=== PATIENT | female | born 1935 | race Two or more races ===

== ENCOUNTER 2021-06-12 07:07 | Inpatient (IN) | payer OTHER, MEDICAID ==
[~2021-06-12] VITALS: Ht 167.6 cm; Wt 97.3 kg
[2021-06-12] MEDS ORDERED: IPRATROPIUM BROM 0.5 MG/2.5ML INH SOL NEB ONE (07:30)
[2021-06-12] MEDS ORDERED: methylPREDNISolone SOD SUCC 125 MG/2 ML VL IV ONE (07:30)
[2021-06-12] MEDS ORDERED: ALBUTEROL SULF 2.5 MG/0.5ML(0.5%) NEB SOLN NEB ONE (07:30)
[2021-06-12 08:45] LABS: Basophils # (auto) 0 10 ^3/uL (0-0.2); Basophils % (auto) 0.4 % (0.0-2.0); Eosinophils # (auto) 0.1 10 ^3/uL (0-0.8); Eosinophils % (auto) 0.7 % (0.0-7.0); Hematocrit 35.7 % (36.0-46.0); Hemoglobin 11.8 g/dL (12.2-16.2); Lymphocytes # (auto) 1.5 10 ^3/uL (0.4-5.4); Lymphocytes % (auto) 15.9 % (10.0-50.0); Mean Corpuscular Hemoglobin 30.5 pg (28.0-32.0); Mean Corpuscular Volume 92.4 fL (80.0-100.0); Monocytes # (auto) 0.6 10 ^3/uL (0-1.3); Monocytes % (auto) 6.2 % (0.0-12.0); Neutrophils % (auto) 76.8 % (37.0-80.0); Nucleated Red Blood Cells % 0.1 %; Red Blood Cells 3.87 10^6/uL (4.0-5.20); Red Cell Distribution Width 14.2 % (11.8-14.3); White Blood Cell 9.2 10^3/uL (4.4-10.8)
[2021-06-12 08:57] LABS: Albumin 2.6 g/dL (3.4-5.0); BUN/Creatinine Ratio 20.5; Calcium 8.4 mg/dL (8.5-10.1); Potassium 3.2 mmol/L (3.5-5.1)
[2021-06-12 09:02] LABS: Bilirubin, Total 0.5 mg/dL (0.2-1.0); Total Protein 7.1 g/dL (6.4-8.2)
[2021-06-12] MEDS ORDERED: ENOXAPARIN SOD 120 MG/0.8 ML SYRINGE SC ONE (09:45)
[2021-06-12] MEDS ORDERED: ONDANSETRON HCL 4 MG/2 ML VIAL IV PRN (11:45)
[2021-06-12] MEDS ORDERED: FUROSEMIDE 20 MG/2 ML VIAL IV ONE (11:45)
[2021-06-12] MEDS ORDERED: hydrALAZINE HCL 20 MG/ML VL IV PRN (11:45)
[2021-06-12] MEDS ORDERED: HYDROcodone-ACET 5/325MG TAB PO PRN (11:45)
[2021-06-12] MEDS ORDERED: NITROGLYCERIN 0.4 MG SL TAB SL PRN (11:45)
[2021-06-12] MEDS ORDERED: POTASSIUM EFFERVESENT TAB 25 MEQ PO ONE (11:45)
[2021-06-12] MEDS ORDERED: MORPHINE SULFATE INJECTION 2 MG/ML SYRG IV PRN ×2 (11:45)
[2021-06-12] MEDS ORDERED: ACETAMINOPHEN 500 MG TAB PO PRN (11:45)
[2021-06-12 14:12] LABS: Urine Bacteria FEW /hpf (None Seen); Urine Blood Negative /uL (Negative); Urine Mucus FEW (None Seen); Urine Specific Gravity 1.012 (1.001-1.035); Urine WBC 14 /hpf (0 - 5)
[2021-06-12] MEDS: METOPROLOL TARTRATE 25 MG TAB PO SCH (23:57)
[2021-06-12] MEDS: ATORVASTATIN 20 MG TAB PO SCH (23:57)
[2021-06-12] MEDS: ENOXAPARIN SOD 120 MG/0.8 ML SYRINGE SC SCH (23:58)
[2021-06-13 07:00] LABS: Basophils # (auto) 0 10 ^3/uL (0-0.2); Basophils % (auto) 0.1 % (0.0-2.0); Eosinophils # (auto) 0 10 ^3/uL (0-0.8); Eosinophils % (auto) 0.1 % (0.0-7.0); Hematocrit 33.3 % (36.0-46.0); Hemoglobin 11.3 g/dL (12.2-16.2); Lymphocytes # (auto) 0.8 10 ^3/uL (0.4-5.4); Lymphocytes % (auto) 8.4 % (10.0-50.0); Mean Corpuscular Hemoglobin 31.2 pg (28.0-32.0); Mean Corpuscular Hgb Conc. 33.8 g/dL (32.0-36.0); Mean Corpuscular Volume 92.3 fL (80.0-100.0); Monocytes # (auto) 0.5 10 ^3/uL (0-1.3); Monocytes % (auto) 5.5 % (0.0-12.0); Neutrophils # (auto) 7.9 10 ^3/uL (1.6-8.6); Neutrophils % (auto) 85.9 % (37.0-80.0); Red Blood Cells 3.61 10^6/uL (4.0-5.20); Red Cell Distribution Width 14.2 % (11.8-14.3); White Blood Cell 9.2 10^3/uL (4.4-10.8)
[2021-06-13 07:07] LABS: INR 1.17 (0.9-1.15); Partial Thromboplastin Time 36.1 sec (23.6-33.0)
[2021-06-13 07:18] LABS: Potassium 4.3 mmol/L (3.5-5.1)
[2021-06-13 07:23] LABS: BUN/Creatinine Ratio 29.6; Calcium 8.4 mg/dL (8.5-10.1)
[2021-06-13 09:01] VITALS: BP 104/54
[2021-06-13] MEDS ORDERED: IOHEXOL 350 MG/ML 100ML IJ ONE ×2 (09:39→17:40)
[2021-06-13] MEDS: METOPROLOL TARTRATE 25 MG TAB PO SCH (10:42)
[2021-06-13] MEDS: LISINOPRIL 10 MG TAB PO SCH (10:42)
[2021-06-13] MEDS: ASPirin-EC 81 mg tab PO SCH (10:42)
[2021-06-13] MEDS: ENOXAPARIN SOD 120 MG/0.8 ML SYRINGE SC SCH ×2 (10:43→22:05)
[2021-06-13 13:00] VITALS: BP 96/49
[2021-06-13] MEDS ORDERED: CALC667C PO (16:52)
[2021-06-13] MEDS ORDERED: AMLO-496 PO (16:52)
[2021-06-13] MEDS ORDERED: OMEP20TA PO (16:52)
[2021-06-13] MEDS ORDERED: MEMA1TAB5 PO (16:52)
[2021-06-13] MEDS ORDERED: LOSA-69 PO (16:52)
[2021-06-13] MEDS ORDERED: CHOL500035 PO (16:52)
[2021-06-13] MEDS ORDERED: MIRT1TAB38 PO (16:52)
[2021-06-13 17:00] VITALS: BP 103/48
[2021-06-13] MEDS: cefTRIAXone 1GM/50ML D5W 50 ML IV SCH (17:17)
[2021-06-13 22:00] VITALS: BP 103/60
[2021-06-13] MEDS: ATORVASTATIN 20 MG TAB PO SCH (22:05)
[2021-06-14 05:00] VITALS: BP 134/76
[2021-06-14 07:28] LABS: Basophils # (auto) 0.1 10 ^3/uL (0-0.2); Basophils % (auto) 0.6 % (0.0-2.0); Eosinophils # (auto) 0.1 10 ^3/uL (0-0.8); Eosinophils % (auto) 1.2 % (0.0-7.0); Hematocrit 31.6 % (36.0-46.0); Hemoglobin 10.7 g/dL (12.2-16.2); Lymphocytes # (auto) 1.5 10 ^3/uL (0.4-5.4); Lymphocytes % (auto) 15.3 % (10.0-50.0); Mean Corpuscular Hemoglobin 31.4 pg (28.0-32.0); Mean Corpuscular Hgb Conc. 33.9 g/dL (32.0-36.0); Mean Corpuscular Volume 92.7 fL (80.0-100.0); Monocytes # (auto) 0.6 10 ^3/uL (0-1.3); Monocytes % (auto) 5.9 % (0.0-12.0); Neutrophils # (auto) 7.6 10 ^3/uL (1.6-8.6); Red Blood Cells 3.42 10^6/uL (4.0-5.20); Red Cell Distribution Width 14.4 % (11.8-14.3); White Blood Cell 9.9 10^3/uL (4.4-10.8)
[2021-06-14 07:29] LABS: Potassium 3.8 mmol/L (3.5-5.1)
[2021-06-14 07:35] LABS: BUN/Creatinine Ratio 36.8; Calcium 8.4 mg/dL (8.5-10.1)
[2021-06-14 08:05] VITALS: BP 117/64
[2021-06-14] MEDS: cefTRIAXone 1GM/50ML D5W 50 ML IV SCH (08:05)
[2021-06-14 09:40] VITALS: BP 117/64
[2021-06-14] MEDS: LISINOPRIL 10 MG TAB PO SCH (09:54)
[2021-06-14] MEDS: ASPirin-EC 81 mg tab PO SCH (09:54)
[2021-06-14] MEDS: ENOXAPARIN SOD 120 MG/0.8 ML SYRINGE SC SCH ×2 (09:55→21:08)
[2021-06-14] MEDS: SODIUM CHLORIDE 0.9% 1,000 ML IV SCH (12:32)
[2021-06-14 13:08] VITALS: BP 130/73
[2021-06-14 17:25] VITALS: BP 116/59
[2021-06-14] MEDS: ATORVASTATIN 20 MG TAB PO SCH (21:06)
[2021-06-14] MEDS: MIRTAZAPINE 30 MG TAB PO SCH (21:07)
[2021-06-14 22:00] VITALS: BP 124/66
[2021-06-15] MEDS: SODIUM CHLORIDE 0.9% 1,000 ML IV SCH (04:14)
[2021-06-15 05:00] VITALS: BP 136/70
[2021-06-15 06:53] LABS: Calcium 7.9 mg/dL (8.5-10.1); Potassium 3.5 mmol/L (3.5-5.1)
[2021-06-15 06:56] LABS: BUN/Creatinine Ratio 32.1
[2021-06-15] MEDS: ASPirin-EC 81 mg tab PO SCH (08:59)
[2021-06-15] MEDS: ENOXAPARIN SOD 120 MG/0.8 ML SYRINGE SC SCH ×2 (08:59→22:03)
[2021-06-15] MEDS: cefTRIAXone 1GM/50ML D5W 50 ML IV SCH (08:59)
[2021-06-15 09:00] VITALS: BP 115/54
[2021-06-15 17:23] VITALS: BP 134/64
[2021-06-15 22:00] VITALS: BP 139/56
[2021-06-15] MEDS: ATORVASTATIN 20 MG TAB PO SCH (22:03)
[2021-06-15] MEDS: MIRTAZAPINE 30 MG TAB PO SCH (22:03)
[2021-06-16 05:01] VITALS: BP 150/80
[2021-06-16 06:11] LABS: Hemoglobin 10.8 g/dL (12.2-16.2); Mean Corpuscular Hgb Conc. 33.8 g/dL (32.0-36.0); Mean Corpuscular Volume 91.6 fL (80.0-100.0); Red Blood Cells 3.49 10^6/uL (4.0-5.20); Red Cell Distribution Width 13.8 % (11.8-14.3)
[2021-06-16 06:20] LABS: Potassium 3.5 mmol/L (3.5-5.1)
[2021-06-16 06:22] LABS: BUN/Creatinine Ratio 24.7
[2021-06-16 06:28] LABS: Basophils % (manual) 0 (0.0-2.0); Blast Cells 0; Metamyelocytes % 0; Myelocytes % 0; Promyelocytes % 0; Reactive Lymphocytes 0
[2021-06-16 07:17] LABS: Band Neutrophils % (manual) 4; Eosinophils % (manual) 3 (0-7); Lymphocytes % (manual) 23 (10.0-50.0); Monocytes % (manual) 7 (0-12)
[2021-06-16 09:00] VITALS: BP 124/67
[2021-06-16] MEDS: cefTRIAXone 1GM/50ML D5W 50 ML IV SCH (09:28)
[2021-06-16] MEDS: ENOXAPARIN SOD 120 MG/0.8 ML SYRINGE SC SCH (09:29)
[2021-06-16] MEDS: ASPirin-EC 81 mg tab PO SCH (09:29)
[2021-06-16 13:00] VITALS: BP 140/70
[2021-06-16] MEDS: PANTOPRAZOLE 40 MG TAB PO SCH (15:44)
[2021-06-16 17:00] VITALS: BP 131/96
[2021-06-16] MEDS: ENOXAPARIN SOD 100 MG/1 ML SYRINGE SC SCH (21:32)
[2021-06-16] MEDS: MIRTAZAPINE 30 MG TAB PO SCH (21:33)
[2021-06-16] MEDS: ATORVASTATIN 20 MG TAB PO SCH (21:33)
[2021-06-16 22:25] VITALS: BP 116/71
[2021-06-17 05:00] VITALS: BP 133/66
[2021-06-17 09:00] VITALS: BP 129/73
[2021-06-17] MEDS: ENOXAPARIN SOD 100 MG/1 ML SYRINGE SC SCH ×2 (09:20→22:35)
[2021-06-17] MEDS: ASPirin-EC 81 mg tab PO SCH (09:21)
[2021-06-17] MEDS: PANTOPRAZOLE 40 MG TAB PO SCH (09:21)
[2021-06-17] MEDS: cefTRIAXone 1GM/50ML D5W 50 ML IV SCH (09:21)
[2021-06-17 13:00] VITALS: BP 121/65
[2021-06-17] MEDS ORDERED: LACTULOSE 20Gm/30ML SOLN PO PRN ×2 (13:00)
[2021-06-17 17:00] VITALS: BP 102/52
[2021-06-17 22:00] VITALS: BP 110/72
[2021-06-17] MEDS: DOCUSATE SOD 100 MG CAP PO SCH (22:33)
[2021-06-17] MEDS: ATORVASTATIN 20 MG TAB PO SCH (22:33)
[2021-06-17] MEDS: MIRTAZAPINE 30 MG TAB PO SCH (22:35)
[2021-06-18 05:30] VITALS: BP 121/60
[2021-06-18 07:38] LABS: Hemoglobin 10.4 g/dL (12.2-16.2); Mean Corpuscular Hemoglobin 30.5 pg (28.0-32.0); Mean Corpuscular Hgb Conc. 33.4 g/dL (32.0-36.0); Mean Corpuscular Volume 91.4 fL (80.0-100.0); Red Blood Cells 3.39 10^6/uL (4.0-5.20); Red Cell Distribution Width 13.7 % (11.8-14.3)
[2021-06-18 08:00] VITALS: BP 137/69
[2021-06-18 08:01] LABS: BUN/Creatinine Ratio 23.5; Calcium 7.9 mg/dL (8.5-10.1); Magnesium 1.9 mg/dL (1.6-2.6); Potassium 4.1 mmol/L (3.5-5.1)
[2021-06-18 08:39] LABS: Basophils % (manual) 0 (0.0-2.0); Blast Cells 0; Metamyelocytes % 0; Myelocytes % 0; Promyelocytes % 0; Reactive Lymphocytes 0
[2021-06-18 09:00] VITALS: BP 137/69
[2021-06-18] MEDS: PANTOPRAZOLE 40 MG TAB PO SCH (09:37)
[2021-06-18] MEDS: ENOXAPARIN SOD 100 MG/1 ML SYRINGE SC SCH ×2 (09:37→20:34)
[2021-06-18] MEDS: cefTRIAXone 1GM/50ML D5W 50 ML IV SCH (09:37)
[2021-06-18] MEDS: DOCUSATE SOD 100 MG CAP PO SCH ×2 (09:37→20:33)
[2021-06-18] MEDS: ASPirin-EC 81 mg tab PO SCH (09:37)
[2021-06-18] MEDS ORDERED: MAGNESIUM SULFATE 1GM/100ML 100 ML IV ONE (12:00)
[2021-06-18 13:05] VITALS: BP 158/83
[2021-06-18 13:05] LABS: Band Neutrophils % (manual) 2; Eosinophils % (manual) 4 (0-7); Lymphocytes % (manual) 13 (10.0-50.0); Monocytes % (manual) 8 (0-12)
[2021-06-18 17:00] VITALS: BP 125/72
[2021-06-18] MEDS: MIRTAZAPINE 30 MG TAB PO SCH (20:33)
[2021-06-18] MEDS: ATORVASTATIN 20 MG TAB PO SCH (20:33)
[2021-06-18 22:00] VITALS: BP 127/67
[2021-06-19 05:00] VITALS: BP 100/58
[2021-06-19 08:30] VITALS: BP 132/72
[2021-06-19] MEDS: PANTOPRAZOLE 40 MG TAB PO SCH (10:21)
[2021-06-19] MEDS: cefTRIAXone 1GM/50ML D5W 50 ML IV SCH (10:21)
[2021-06-19] MEDS: ASPirin-EC 81 mg tab PO SCH (10:21)
[2021-06-19] MEDS: DOCUSATE SOD 100 MG CAP PO SCH ×2 (10:21→20:31)
[2021-06-19] MEDS: ENOXAPARIN SOD 100 MG/1 ML SYRINGE SC SCH (10:22)
[2021-06-19 13:30] VITALS: BP 140/62
[2021-06-19 16:30] VITALS: BP 120/69
[2021-06-19] MEDS: ATORVASTATIN 20 MG TAB PO SCH (20:31)
[2021-06-19] MEDS: MIRTAZAPINE 30 MG TAB PO SCH (20:32)
[2021-06-19] MEDS: APIXABAN 5 MG TAB PO SCH (20:32)
[2021-06-19 21:30] VITALS: BP 127/67
[2021-06-20 05:00] VITALS: BP 129/56
[2021-06-20 09:00] VITALS: BP 133/61
[2021-06-20] MEDS: DOCUSATE SOD 100 MG CAP PO SCH (09:33)
[2021-06-20] MEDS: APIXABAN 5 MG TAB PO SCH (09:33)
[2021-06-20] MEDS: PANTOPRAZOLE 40 MG TAB PO SCH (09:34)
[2021-06-20 12:50] VITALS: BP 133/86
[2021-06-26] MEDS ORDERED: APIXABAN 5 MG TAB PO SCH (22:00)
== END 2021-06-20 16:28 | disposition home or self-care (01) | DRG 280 ==
LOC: EDBD 07:07 → ER 07:07 → EDBD 11:41 → TELE 11:41 → TELE-WESTW 06-13 09:02
PROVIDERS: ADMIT Nurse Practitioner Acute Care; ATTEND Internal Medicine
DX: I21.4 Non-ST elevation (NSTEMI) myocardial infarction (principal); I26.99 Other pulmonary embolism without acute cor pulmonale; J96.01 Acute respiratory failure with hypoxia; I82.442 Acute embolism and thrombosis of left tibial vein; I82.412 Acute embolism and thrombosis of left femoral vein; J45.901 Unspecified asthma with (acute) exacerbation; I48.91 Unspecified atrial fibrillation; N18.30 Chronic kidney disease, stage 3 unspecified; Z20.822 Contact with and (suspected) exposure to COVID-19; E66.9 Obesity, unspecified; E78.5 Hyperlipidemia, unspecified; F02.80 Dementia in other diseases classified elsewhere, unspecified severity, without behavioral disturbance, psychotic disturbance, mood disturbance, and anxiety; I12.9 Hypertensive chronic kidney disease with stage 1 through stage 4 chronic kidney disease, or unspecified chronic kidney disease; G30.9 Alzheimer's disease, unspecified; J44.9 Chronic obstructive pulmonary disease, unspecified; K59.00 Constipation, unspecified; R73.03 Prediabetes; Z79.01 Long term (current) use of anticoagulants; Z88.0 Allergy status to penicillin; Z68.33 Body mass index [BMI] 33.0-33.9, adult
CPT/HCPCS: 36415; 36600; 71045; 71275; 80048; 80053; 81001; 82805; 83735; 83880; 84484; 85007; 85025; 85027; 85379; 85610; 85730; 86141; 87086; 87426; 93005; 93306; 93970; 94640; 96372; 96374; 97116; 97163; 97530; G0378; J0696

== ENCOUNTER 2021-08-20 23:15 | Emergency (ER) | payer OTHER, MEDICAID ==
[~2021-08-20] VITALS: Ht 154.9 cm; Wt 83.9 kg
[~2021-08-20 23:15] MED LIST: AMLO-496 PO; CALC667C PO; CHOL500035 PO; LOSA-69 PO; MEMA1TAB5 PO; MIRT1TAB38 PO; OMEP20TA PO
[2021-08-21 02:43] LABS: Basophils # (auto) 0.1 10 ^3/uL (0-0.2); Basophils % (auto) 1.1 % (0.0-2.0); Eosinophils # (auto) 0.2 10 ^3/uL (0-0.8); Eosinophils % (auto) 4.1 % (0.0-7.0); Hematocrit 35.8 % (36.0-46.0); Hemoglobin 11.7 g/dL (12.2-16.2); Lymphocytes # (auto) 1.5 10 ^3/uL (0.4-5.4); Lymphocytes % (auto) 24.4 % (10.0-50.0); Mean Corpuscular Hemoglobin 29.5 pg (28.0-32.0); Mean Corpuscular Hgb Conc. 32.8 g/dL (32.0-36.0); Mean Corpuscular Volume 89.9 fL (80.0-100.0); Monocytes # (auto) 0.4 10 ^3/uL (0-1.3); Monocytes % (auto) 6.5 % (0.0-12.0); Neutrophils # (auto) 3.8 10 ^3/uL (1.6-8.6); Neutrophils % (auto) 63.9 % (37.0-80.0); Red Blood Cells 3.98 10^6/uL (4.0-5.20); Red Cell Distribution Width 14.1 % (11.8-14.3)
[2021-08-21 02:58] LABS: INR 1.4 (0.9-1.15); Partial Thromboplastin Time 54.8 sec (23.6-33.0)
[2021-08-21 03:01] LABS: Albumin 3.2 g/dL (3.4-5.0); Calcium 8.2 mg/dL (8.5-10.1); Magnesium 2.5 mg/dL (1.6-2.6); Potassium 3.8 mmol/L (3.5-5.1)
[2021-08-21 03:06] LABS: BUN/Creatinine Ratio 25.6; Bilirubin, Total 0.3 mg/dL (0.2-1.0); Total Protein 7.6 g/dL (6.4-8.2)
[2021-08-21] MEDS ORDERED: ALBU108A5 IN (05:08)
[2021-08-21] MEDS ORDERED: PRED20TA2 PO ×2 (05:08→12:18)
[2021-08-21 05:27] VITALS: BP 147/71
[2021-08-21] MEDS ORDERED: ALBUAER3 IN (12:18)
== END 2021-08-21 05:40 | disposition home or self-care (01) ==
LOC: EDBD 23:15 → ER 23:15
DX: I26.99 Other pulmonary embolism without acute cor pulmonale (principal); R06.00 Dyspnea, unspecified; J45.909 Unspecified asthma, uncomplicated; I10 Essential (primary) hypertension; Z88.0 Allergy status to penicillin
CPT/HCPCS: 36415; 71045; 71275; 80053; 83735; 83880; 84484; 85025; 85610; 85730; 93005; 99285; Q9967

== ENCOUNTER 2021-09-06 20:08 | Emergency (ER) | payer OTHER, MEDICAID ==
[~2021-09-06] VITALS: Ht 162.6 cm; Wt 81.6 kg
[~2021-09-06 20:08] MED LIST changes: +ALBU108A5 IN; +ALBUAER3 IN; +PRED20TA2 PO
[2021-09-07] MEDS ORDERED: ACETAMINOPHEN 325 MG TAB PO ONE ×3 (00:15→02:00)
[2021-09-07 02:33] VITALS: BP 144/86
== END 2021-09-07 03:21 | disposition home or self-care (01) ==
LOC: EDBD 20:08 → ER 20:08
DX: S82.62XA Displaced fracture of lateral malleolus of left fibula, initial encounter for closed fracture (principal); I10 Essential (primary) hypertension; J45.909 Unspecified asthma, uncomplicated; Z88.0 Allergy status to penicillin; Z91.018 Allergy to other foods; X58.XXXA Exposure to other specified factors, initial encounter; Y93.89 Activity, other specified; Y92.89 Other specified places as the place of occurrence of the external cause; Y99.8 Other external cause status
CPT/HCPCS: 29515; 73610

== ENCOUNTER 2022-02-08 07:46 | Inpatient (IN) | payer OTHER, MEDICAID ==
[~2022-02-08] VITALS: Ht 157.5 cm; Wt 102.2 kg
[2022-02-08] MEDS ORDERED: VANCOMYCIN PER PHARMACY 0 MG IV SCH (09:00)
[2022-02-08] MEDS ORDERED: SODIUM CHLORIDE 0.9% 2,700 ML IV ONE (09:00)
[2022-02-08] MEDS ORDERED: CEFEPIME 1GM/ 50ML 50 ML IV ONE (09:00)
[2022-02-08] MEDS ORDERED: ACETAMINOPHEN 650 MG RECT SUPP PR ONE (09:00)
[2022-02-08] MEDS ORDERED: VANCOMYCIN 1GM/250ML 250 ML IV ONE (10:00)
[2022-02-08 10:02] LABS: Basophils # (auto) 0 10 ^3/uL (0-0.2); Basophils % (auto) 0.4 % (0.0-2.0); Eosinophils # (auto) 0.1 10 ^3/uL (0-0.8); Eosinophils % (auto) 0.7 % (0.0-7.0); Hematocrit 29.3 % (36.0-46.0); Hemoglobin 9.4 g/dL (12.2-16.2); Lymphocytes # (auto) 0.6 10 ^3/uL (0.4-5.4); Mean Corpuscular Hemoglobin 29.1 pg (28.0-32.0); Mean Corpuscular Hgb Conc. 32.1 g/dL (32.0-36.0); Mean Corpuscular Volume 90.7 fL (80.0-100.0); Monocytes # (auto) 0.3 10 ^3/uL (0-1.3); Neutrophils # (auto) 6.1 10 ^3/uL (1.6-8.6); Neutrophils % (auto) 86.9 % (37.0-80.0); Nucleated Red Blood Cells % 0.1 %; Red Blood Cells 3.23 10^6/uL (4.0-5.20); Red Cell Distribution Width 14.3 % (11.8-14.3); White Blood Cell 7.1 10^3/uL (4.4-10.8)
[2022-02-08 10:04] LABS: Albumin 2.4 g/dL (3.4-5.0); BUN/Creatinine Ratio 40.4; Calcium 9.4 mg/dL (8.5-10.1); Potassium 4.4 mmol/L (3.5-5.1)
[2022-02-08 10:07] LABS: Bilirubin, Total 0.4 mg/dL (0.2-1.0); Total Protein 7.1 g/dL (6.4-8.2)
[2022-02-08 15:38] LABS: INR 2.8 (0.9-1.15)
[2022-02-08 15:47] LABS: Partial Thromboplastin Time 84.5 sec (23.6-33.0)
[2022-02-08] MEDS ORDERED: HYDROcodone-ACET 5/325MG TAB PO ONE (17:30)
[2022-02-08 18:25] VITALS: BP 129/54
[2022-02-08] MEDS ORDERED: ALBUTEROL SULF 2.5 MG/0.5ML(0.5%) NEB SOLN NEB PRN (18:30)
[2022-02-08] MEDS ORDERED: IPRATROPIUM BROM 0.5 MG/2.5ML INH SOL NEB PRN (18:30)
[2022-02-08 18:52] LABS: Cholesterol 134 mg/dL (< 200); HDL Cholesterol 40 mg/dL (40-59); LDL Cholesterol 86 mg/dL (< 100); Triglycerides 94 mg/dL (< 150)
[2022-02-08 19:03] LABS: Urine Bacteria NONE SEEN /hpf (None Seen); Urine Blood Negative /uL (Negative); Urine Hyaline Cast FEW /lpf (0 - 2); Urine Specific Gravity 1.014 (1.001-1.035); Urine WBC <1 /hpf (0 - 5)
[2022-02-08 19:24] LABS: Alcohol, Urine < 3.0 mg/dL (0-10); Amphetamine Screen, Urine NEGATIVE (NEGATIVE); Barbiturate Scree,Urine NEGATIVE (NEGATIVE); Benzodiazephine Screen, Urine NEGATIVE (NEGATIVE); Cannabinoid Screen, Urine NEGATIVE (NEGATIVE); Cocaine Screen, Urine NEGATIVE (NEGATIVE); Opiate Scree,Urine POSITIVE (NEGATIVE); Phencyclidine Screen, Urine NEGATIVE (NEGATIVE)
[2022-02-08 22:00] VITALS: BP 113/62
[2022-02-08] MEDS: methylPREDNISolone SOD SUCC 125 MG/2 ML VL IV SCH (22:10)
[2022-02-09 05:35] LABS: Albumin 2.4 g/dL (3.4-5.0); Calcium 8.6 mg/dL (8.5-10.1); Potassium 4.1 mmol/L (3.5-5.1)
[2022-02-09 05:40] LABS: BUN/Creatinine Ratio 34.8; Bilirubin, Total 0.4 mg/dL (0.2-1.0); Total Protein 7.4 g/dL (6.4-8.2)
[2022-02-09 05:42] VITALS: BP 119/74
[2022-02-09] MEDS: methylPREDNISolone SOD SUCC 125 MG/2 ML VL IV SCH (05:49)
[2022-02-09 05:57] LABS: Basophils # (auto) 0 10 ^3/uL (0-0.2); Basophils % (auto) 0.1 % (0.0-2.0); Eosinophils # (auto) 0 10 ^3/uL (0-0.8); Eosinophils % (auto) 0.1 % (0.0-7.0); Hematocrit 28.4 % (36.0-46.0); Hemoglobin 9.3 g/dL (12.2-16.2); Lymphocytes # (auto) 0.4 10 ^3/uL (0.4-5.4); Lymphocytes % (auto) 5.8 % (10.0-50.0); Mean Corpuscular Hemoglobin 29.6 pg (28.0-32.0); Mean Corpuscular Hgb Conc. 32.7 g/dL (32.0-36.0); Mean Corpuscular Volume 90.5 fL (80.0-100.0); Monocytes # (auto) 0 10 ^3/uL (0-1.3); Monocytes % (auto) 0.7 % (0.0-12.0); Neutrophils # (auto) 5.8 10 ^3/uL (1.6-8.6); Neutrophils % (auto) 93.3 % (37.0-80.0); Red Blood Cells 3.13 10^6/uL (4.0-5.20); Red Cell Distribution Width 14.2 % (11.8-14.3); White Blood Cell 6.2 10^3/uL (4.4-10.8)
[2022-02-09] MEDS: IPRATROPIUM BROM 0.5 MG/2.5ML INH SOL NEB SCH ×3 (06:20→18:57)
[2022-02-09] MEDS: ALBUTEROL SULF 2.5 MG/0.5ML(0.5%) NEB SOLN NEB SCH ×3 (06:20→18:57)
[2022-02-09] MEDS: ACCU-CHEK COMFORT CURVE STRIP VI SCH ×4 (07:00→21:42)
[2022-02-09] MEDS ORDERED: DEXTROSE (50%) 50ML SYRG IV PRN (07:00)
[2022-02-09] MEDS ORDERED: levoFLOXacin 500MG 100 ML IV ONE ×2 (07:45→10:00)
[2022-02-09 09:00] VITALS: BP 129/69
[2022-02-09] MEDS ORDERED: levoFLOXacin 500MG 100 ML IV SCH (10:00)
[2022-02-09 11:37] LABS: Amylase 23 U/L (25-115); Lipase 26 U/L (73-393)
[2022-02-09] MEDS: InsuLIN REG 1unit/0.01ml Soln (100units/ml) SC SCH ×3 (11:52→21:41)
[2022-02-09 13:00] VITALS: BP 143/72
[2022-02-09] MEDS ORDERED: VANCOMYCIN 1GM/250ML 250 ML IV SCH (16:00)
[2022-02-09 17:00] VITALS: BP 145/61
[2022-02-09 22:14] VITALS: BP 119/60
[2022-02-09] MEDS: DOCUSATE SOD 100 MG CAP PO PRN (23:49)
[2022-02-10 04:56] VITALS: BP 126/59
[2022-02-10] MEDS: IPRATROPIUM BROM 0.5 MG/2.5ML INH SOL NEB SCH ×3 (05:57→19:27)
[2022-02-10] MEDS: ALBUTEROL SULF 2.5 MG/0.5ML(0.5%) NEB SOLN NEB SCH ×3 (05:57→19:27)
[2022-02-10] MEDS: ACCU-CHEK COMFORT CURVE STRIP VI SCH ×4 (06:07→22:00)
[2022-02-10] MEDS: InsuLIN REG 1unit/0.01ml Soln (100units/ml) SC SCH ×4 (06:07→22:00)
[2022-02-10 08:00] VITALS: BP 145/66
[2022-02-10] MEDS: levoFLOXacin 250MG 50 ML IV SCH (10:07)
[2022-02-10] MEDS: DOCUSATE SOD 100 MG CAP PO PRN (10:08)
[2022-02-10] MEDS: VANCOMYCIN 1GM/250ML 250 ML IV SCH (11:57)
[2022-02-10 12:00] VITALS: BP 137/56
[2022-02-10] MEDS ORDERED: ONDANSETRON HCL 4 MG/2 ML VIAL IV ONE (15:30)
[2022-02-10 16:00] VITALS: BP 132/54
[2022-02-10 22:00] VITALS: BP 146/51
[2022-02-11 05:00] VITALS: BP 159/68
[2022-02-11] MEDS: VANCOMYCIN 1GM/250ML 250 ML IV SCH (06:00)
[2022-02-11 06:28] LABS: BUN/Creatinine Ratio 20.3; Calcium 8.1 mg/dL (8.5-10.1); Potassium 3.2 mmol/L (3.5-5.1)
[2022-02-11] MEDS: ALBUTEROL SULF 2.5 MG/0.5ML(0.5%) NEB SOLN NEB SCH ×3 (06:49→18:17)
[2022-02-11] MEDS: IPRATROPIUM BROM 0.5 MG/2.5ML INH SOL NEB SCH ×3 (06:49→18:17)
[2022-02-11] MEDS: ACCU-CHEK COMFORT CURVE STRIP VI SCH ×4 (07:00→21:58)
[2022-02-11] MEDS: InsuLIN REG 1unit/0.01ml Soln (100units/ml) SC SCH ×4 (07:00→21:58)
[2022-02-11 09:00] VITALS: BP 146/68
[2022-02-11] MEDS: levoFLOXacin 250MG 50 ML IV SCH (10:42)
[2022-02-11] MEDS: DOCUSATE SOD 100 MG CAP PO PRN (10:42)
[2022-02-11] MEDS ORDERED: VANCOMYCIN 1GM/250ML 250 ML IV SCH (11:00)
[2022-02-11 13:00] VITALS: BP 132/66
[2022-02-11 16:50] VITALS: BP 132/67
[2022-02-11 22:00] VITALS: BP 139/58
[2022-02-12 00:46] VITALS: BP 139/58
[2022-02-12 04:39] VITALS: BP 155/62
[2022-02-12] MEDS ORDERED: VANCOMYCIN 1GM/250ML 250 ML IV SCH (05:00)
[2022-02-12 05:27] LABS: Basophils # (auto) 0 10 ^3/uL (0-0.2); Basophils % (auto) 0.3 % (0.0-2.0); Eosinophils # (auto) 0.1 10 ^3/uL (0-0.8); Eosinophils % (auto) 1.7 % (0.0-7.0); Hematocrit 25.9 % (36.0-46.0); Hemoglobin 8.8 g/dL (12.2-16.2); Lymphocytes # (auto) 1.1 10 ^3/uL (0.4-5.4); Mean Corpuscular Volume 88.3 fL (80.0-100.0); Monocytes # (auto) 0.4 10 ^3/uL (0-1.3); Monocytes % (auto) 7.4 % (0.0-12.0); Neutrophils # (auto) 4.2 10 ^3/uL (1.6-8.6); Neutrophils % (auto) 71.6 % (37.0-80.0); Red Blood Cells 2.93 10^6/uL (4.0-5.20); Red Cell Distribution Width 14.6 % (11.8-14.3); White Blood Cell 5.9 10^3/uL (4.4-10.8)
[2022-02-12 05:37] LABS: Albumin 2.3 g/dL (3.4-5.0); Calcium 7.7 mg/dL (8.5-10.1); Potassium 3.5 mmol/L (3.5-5.1)
[2022-02-12 05:38] LABS: BUN/Creatinine Ratio 17.5; Phosphorus 2.5 mg/dL (2.5-4.90)
[2022-02-12] MEDS: ALBUTEROL SULF 2.5 MG/0.5ML(0.5%) NEB SOLN NEB SCH ×3 (05:46→17:53)
[2022-02-12] MEDS: IPRATROPIUM BROM 0.5 MG/2.5ML INH SOL NEB SCH ×3 (05:46→17:53)
[2022-02-12] MEDS: ACCU-CHEK COMFORT CURVE STRIP VI SCH ×4 (06:37→21:59)
[2022-02-12] MEDS: InsuLIN REG 1unit/0.01ml Soln (100units/ml) SC SCH ×4 (06:37→21:59)
[2022-02-12 08:27] VITALS: BP 158/88
[2022-02-12] MEDS ORDERED: amLODIPine BESYLATE 5 MG TAB PO ONE (10:30)
[2022-02-12] MEDS: levoFLOXacin 250MG 50 ML IV SCH (11:13)
[2022-02-12 12:02] LABS: INR 1.19 (0.9-1.15); Partial Thromboplastin Time 32.3 sec (23.6-33.0)
[2022-02-12 12:35] VITALS: BP 157/66
[2022-02-12] MEDS: metroNIDAZOLE 500 MG TAB PO SCH ×2 (13:34→21:58)
[2022-02-12] MEDS: DOCUSATE SOD 100 MG CAP PO PRN (15:48)
[2022-02-12 16:26] VITALS: BP 151/65
[2022-02-12] MEDS: MEMANTINE HCL 5 MG TAB PO SCH (21:59)
[2022-02-12 22:00] VITALS: BP 151/84
[2022-02-13 05:00] VITALS: BP 157/70
[2022-02-13] MEDS: metroNIDAZOLE 500 MG TAB PO SCH ×2 (05:47→13:06)
[2022-02-13] MEDS: InsuLIN REG 1unit/0.01ml Soln (100units/ml) SC SCH ×4 (06:31→22:00)
[2022-02-13] MEDS: ACCU-CHEK COMFORT CURVE STRIP VI SCH ×4 (06:31→22:19)
[2022-02-13] MEDS: IPRATROPIUM BROM 0.5 MG/2.5ML INH SOL NEB SCH ×3 (06:33→18:06)
[2022-02-13] MEDS: ALBUTEROL SULF 2.5 MG/0.5ML(0.5%) NEB SOLN NEB SCH ×3 (06:33→18:06)
[2022-02-13 06:43] LABS: Basophils # (auto) 0 10 ^3/uL (0-0.2); Basophils % (auto) 0.4 % (0.0-2.0); Eosinophils # (auto) 0.2 10 ^3/uL (0-0.8); Eosinophils % (auto) 2.8 % (0.0-7.0); Hematocrit 25.3 % (36.0-46.0); Hemoglobin 8.6 g/dL (12.2-16.2); Lymphocytes % (auto) 19.3 % (10.0-50.0); Mean Corpuscular Hemoglobin 30.3 pg (28.0-32.0); Mean Corpuscular Volume 88.9 fL (80.0-100.0); Monocytes # (auto) 0.4 10 ^3/uL (0-1.3); Monocytes % (auto) 7.2 % (0.0-12.0); Neutrophils # (auto) 3.8 10 ^3/uL (1.6-8.6); Neutrophils % (auto) 70.3 % (37.0-80.0); Nucleated Red Blood Cells % 0.1 %; Red Blood Cells 2.85 10^6/uL (4.0-5.20); Red Cell Distribution Width 14.8 % (11.8-14.3); White Blood Cell 5.4 10^3/uL (4.4-10.8)
[2022-02-13 06:57] LABS: Calcium 7.7 mg/dL (8.5-10.1); Potassium 3.4 mmol/L (3.5-5.1)
[2022-02-13 07:00] LABS: BUN/Creatinine Ratio 14.8
[2022-02-13 09:00] VITALS: BP 157/90
[2022-02-13] MEDS ORDERED: MIRT-66 PO (09:50)
[2022-02-13] MEDS ORDERED: DABI150C5 PO (09:52)
[2022-02-13] MEDS ORDERED: QUET50TA PO (09:52)
[2022-02-13] MEDS: MEMANTINE HCL 5 MG TAB PO SCH ×2 (10:08→21:43)
[2022-02-13] MEDS: levoFLOXacin 250MG 50 ML IV SCH (10:08)
[2022-02-13] MEDS: amLODIPine BESYLATE 5 MG TAB PO SCH (10:09)
[2022-02-13] MEDS ORDERED: POTASSIUM CHL 20 Meq TABLET PO ONE (11:00)
[2022-02-13 13:00] VITALS: BP 142/69
[2022-02-13 17:07] VITALS: BP 151/70
[2022-02-13] MEDS: DOXYCYCLINE 100 MG TAB/CAP PO SCH (21:43)
[2022-02-13 22:00] VITALS: BP 138/69
[2022-02-14] VITALS (7 sets, daily range): BP systolic 128–144; BP diastolic 51–81
[2022-02-14] MEDS: ACCU-CHEK COMFORT CURVE STRIP VI SCH ×3 (06:30→17:00)
[2022-02-14] MEDS: InsuLIN REG 1unit/0.01ml Soln (100units/ml) SC SCH ×4 (06:30→17:00)
[2022-02-14] MEDS: IPRATROPIUM BROM 0.5 MG/2.5ML INH SOL NEB SCH ×2 (09:52→18:47)
[2022-02-14] MEDS: ALBUTEROL SULF 2.5 MG/0.5ML(0.5%) NEB SOLN NEB SCH ×2 (09:52→18:47)
[2022-02-14] MEDS: MEMANTINE HCL 5 MG TAB PO SCH (10:00)
[2022-02-14] MEDS: DOXYCYCLINE 100 MG TAB/CAP PO SCH (10:00)
[2022-02-14] MEDS: amLODIPine BESYLATE 5 MG TAB PO SCH (10:00)
[2022-02-15] MEDS: DOXYCYCLINE 100 MG TAB/CAP PO SCH (00:48)
[2022-02-15] MEDS: MEMANTINE HCL 5 MG TAB PO SCH (00:48)
[2022-02-15] MEDS: ACCU-CHEK COMFORT CURVE STRIP VI SCH ×2 (00:48→06:20)
[2022-02-15 05:00] VITALS: BP 145/62
[2022-02-15] MEDS: InsuLIN REG 1unit/0.01ml Soln (100units/ml) SC SCH (06:20)
[2022-02-15] MEDS: IPRATROPIUM BROM 0.5 MG/2.5ML INH SOL NEB SCH (06:50)
[2022-02-15] MEDS: ALBUTEROL SULF 2.5 MG/0.5ML(0.5%) NEB SOLN NEB SCH (06:50)
[2022-02-15 09:16] VITALS: BP 164/77
== END 2022-02-15 10:00 | disposition home or self-care (01) | DRG 871 ==
LOC: ER 07:46 → EDBD 07:46 → TELE 18:01 → TELE-CENTR 20:45
PROVIDERS: ADMIT Registered Nurse; ATTEND Internal Medicine
PROC: 05H933Z Insertion of Infusion Device into Right Brachial Vein, Percutaneous Approach (ICD-10-PCS; principal; 2022-02-12)
PROC: B54MZZA Ultrasonography of Right Upper Extremity Veins, Guidance (ICD-10-PCS; 2022-02-12)
DX: A41.89 Other specified sepsis (principal); J69.0 Pneumonitis due to inhalation of food and vomit; D68.69 Other thrombophilia; Z68.41 Body mass index [BMI] 40.0-44.9, adult; D35.01 Benign neoplasm of right adrenal gland; D64.9 Anemia, unspecified; E66.01 Morbid (severe) obesity due to excess calories; E88.09 Other disorders of plasma-protein metabolism, not elsewhere classified; F02.80 Dementia in other diseases classified elsewhere, unspecified severity, without behavioral disturbance, psychotic disturbance, mood disturbance, and anxiety; G30.9 Alzheimer's disease, unspecified; I12.9 Hypertensive chronic kidney disease with stage 1 through stage 4 chronic kidney disease, or unspecified chronic kidney disease; I48.91 Unspecified atrial fibrillation; Z20.822 Contact with and (suspected) exposure to COVID-19; J45.909 Unspecified asthma, uncomplicated; M19.90 Unspecified osteoarthritis, unspecified site; N18.2 Chronic kidney disease, stage 2 (mild); N83.202 Unspecified ovarian cyst, left side; K80.20 Calculus of gallbladder without cholecystitis without obstruction; K57.90 Diverticulosis of intestine, part unspecified, without perforation or abscess without bleeding; Z88.0 Allergy status to penicillin
CPT/HCPCS: 36415; 70450; 71045; 74176; 76705; 80048; 80053; 80061; 80069; 80202; 80307; 81001; 82150; 82962; 83036; 83605; 83690; 83880; 84484; 85025; 85610; 85730; 87040; 87077; 87186; 93005; 93306; 94640; 96365; 96368; 99291; G0378; J1815; J1956; J2405